=== PATIENT | female | born 1955 | race Caucasian/White ===

== ENCOUNTER 2020-01-17 08:58 | Observation (INO) ==
[2020-01-17] MEDS ORDERED: ASPIRIN PO ONE (09:23)
--- NOTE | 2020-01-17 09:31 | PROVIDER DOCUMENTATION ---
HPI-Chest Pain - General Chief Complaint: Chest Pain Stated Complaint: chest pain Time Seen by Provider: 01/17/20 09:08 Source: patient Allergies/Adverse Reactions: Patient Allergies Allergy/AdvReac Type Severity Reaction Status Date / Time Sulfa (Sulfonamide Allergy HIVES Verified 05/18/19 00:07 Antibiotics) Home Medications: Home Medication List Medication Instructions Recorded Confirmed Last Taken Type Alprazolam 1 tab PO QHS PRN 05/18/19 01/17/20 Unknown History Fenofibrate 1 cap PO QPM 05/18/19 01/17/20 Unknown History Hydrocodone/Acetaminophen [[place] 1 ea PO Q6-8H PRN PRN #20 tab 05/18/19 01/17/20 Unknown Rx 5-325 Tablet] Nifedipine [Nifedipine ER] 1 tab PO QPM 05/18/19 01/17/20 Unknown History Omeprazole [Prilosec] 1 cap PO DAILY PRN 05/18/19 01/17/20 Unknown History - History of Present Illness-CP Nature of Presenting Problem: [id number] presents via EMS states that this am she started having midsternal sharp chest pain that did not radiate. Patient was just sitting drinking coffee when she started having this pain. She did have some associated nausea with this chest pain without any vomiting. She then did take Aspirin 325mg, [place] and Advil when this did not resolve her symptoms she did call EMS. She was given 2 nitro SL in route to the hospital her chest pain is now described as a more faint dull pressure midsternal that does not radiate. Patient does deny any n ausea or SOB. Chest wall is not tender to the touch. Patient is nontoxic in appearance. Location: reports: substernal Chest Pain Radiation: reports: no radiation Quality of Pain: reports: dull (now dull after 2 nitro tablets), sharp (initially sharp) Severity in ED: mild (now), severe (initially severe) Onset/Duration: 1 hour ago Timing: improving Context/Activities at Onset: reports: none Associated Symptoms: reports: nausea Nitro Today/Relief: 0.4 mg x 2, provided by EMS, mild relief Aspirin Treatment Today: 325 mg x 1, provided at home Prior Chest Pain/Cardiac Workup: reports: angina, cardiac cath, echocardiography , stress test Similar Symptoms Previously?: Yes Recently Seen Here or By Another Healthcare Provider: Yes (Dr. Phoenix and Dr. Amaral) Review of Systems - Adult - REVIEW OF SYSTEMS - ADULT Constitutional: reports: no symptoms reported. denies: fever, fatique Eyes: reports: no symptoms reported Ears, Nose, Mouth & Throat: reports: no symptoms reported Cardiovascular: reports: chest pain. denies: edema, irregular heart rate, syncope Respiratory: reports: no symptoms reported. denies: chronic cough, cough Gastrointestinal: reports: no symptoms reported, nausea. denies: vomiting Genitourinary: reports: no symptoms reported. denies: dysuria Musculoskeletal: reports: no symptoms reported Integumentary: reports: no symptoms reported Neurological: reports: no symptoms reported. denies: dizziness/vertigo, syncope Psychiatric: reports: no symptoms reported. denies: anxiety Endocrine: reports: no symptoms reported Hematologic/Lymphatic: reports: no symptoms reported Allergic/Immunologic: reports: no symptoms reported All Other Systems: Reviewed and Negative Past History - Adult - PAST MEDICAL HISTORY-ADULT Review of Records: reports: Old Records Reviewed, Nursing Assessment Review, Medications Reviewed, Social history reviewed & non-contributory. Major Childhood Illnesses: reports: denies history Cardiovascular: reports: HTN Respiratory: reports: denies history Gastrointestinal: reports: denies history Obstetrical/Gynecological: reports: denies history Genitourinary: reports: denies history Musculoskeletal: reports: denies history Neurological: reports: denies history Endocrine/Immune: reports: denies history Other Conditions: reports: denies history - IMMUNIZATION STATUS Childhood Immunizations: See Nurse Assessment Flu Vaccine: See Nurse Assessment - FAMILY HISTORY Family History: reviewed, not pertinent - SOCIAL HISTORY Smoking: denies Substance Use: denies Living Situation: family Physical Exam-General - PHYSICAL EXAM-ADULT Initial Vital Signs Reviewed: Yes - CONSTITUTIONAL General Appearance: appears well, alert - EYES Eyes: PERRL/EOMI, pink conjunctivae - HEAD, EARS, NOSE, MOUTH & THROAT HENMT: normocephalic/atraumatic, moist mucous membranes, normal ENT inspection - NECK Neck: non-tender, full range of motion, supple - RESPIRATORY Respiratory: chest non-tender, lungs clear, normal breath sounds, no respiratory distress, no accessory muscle use - CARDIOVASCULAR Cardiovascular: normal peripheral pulses, regular rate, rhythm, no edema, no ga llop, no JVD - GASTROINTESTINAL (ABDOMEN) Abdominal Exam: normal bowel sounds, non tender, soft - MUSCULOSKELETAL Extremity: normal range of motion, non-tender, normal gait, normal inspection, no pedal edema Peripheral Pulses: radial (R): 2+, radial (L): 2+, dorsalis-pedis (R): 2+, dorsalis-pedis (L): 2+ - SKIN Integumentary: normal color, normal turgor, warm/dry - NEUROLOGIC Neurologic: grossly normal - PSYCHIATRIC Psych/Mental Status: normal mood/affect, normal thought content, oriented x 3 - HEART Score HEART Score: History: Moderately Suspicious HEART Score: ECG: Normal HEART Score: Age: > or = 65 Years HEART Score: Risk Factors for Atherosclerotic Disease: 1 or 2 Risk Factors HEART Score: Troponin: < or = Normal Limit Total HEART Score:: 4 Progress - PLAN OF CARE/RESULTS Progress/Plan/Lab Results: Vital Signs - 8 hr 01/17/20 09:10 01/17/20 10:06 Temperature 97.9 F Pulse Rate 88 72 Respiratory Rate 16 15 Blood Pressure 152/81 168/80 O2 Sat by Pulse Oximetry 97 96 Laboratory Results - last 24 hr 01/17/20 01/17/20 01/17/20 09:26 09:26 09:26 WBC RBC Hgb Hct MCV MCH MCHC RDW Std Deviation Plt Count MPV Immature Gran % (Auto) Neut % (Auto) Lymph % (Auto) [place]comb % (Auto) Eos % (Auto) Baso % (Auto) Immature Gran # (Auto) Neut # (Auto) Lymph # (Auto) [place]comb # (Auto) Eos # (Auto) Baso # (Auto) PT INR PTT (Actin FS) Sodium 141 Potassium 4.0 Chloride 102 Carbon Dioxide 25 Anion Gap 14 BUN 19 Creatinine 0.7 Estimated GFR/1.73 m2 > 60 BUN/Creatinine Ratio 27 Glucose 128 H Calculated Osmolality 285 Calcium 9.2 Total Bilirubin 0.42 AST 49 H ALT 28 Alkaline Phosphatase 49 Creatine Kinase 96 Troponin T High Sens 6 Fkd-R-Cuqgrgwdfrw Pept 74 Total Protein 6.6 Albumin 4.5 Globulin 2.1 Albumin/Globulin Ratio 2.1 01/17/20 01/17/20 09:26 09:26 WBC 8.90 RBC 4.46 Hgb 13.0 Hct 40.2 MCV 90.1 MCH 29.1 MCHC 32.3 L RDW Std Deviation 14.6 H Plt Count 314 MPV 10.4 Immature Gran % (Auto) 0.3 Neut % (Auto) 72.6 Lymph % (Auto) 19.0 L Lipscomb % (Auto) 6.6 Eos % (Auto) 0.9 Baso % (Auto) 0.6 Immature Gran # (Auto) 0.03 Neut # (Auto) 6.46 Lymph # (Auto) 1.69 Lipscomb # (Auto) 0.59 Eos # (Auto) 0.08 Baso # (Auto) 0.05 PT 12.5 INR 0.93 PTT (Actin FS) 24.8 Sodium Potassium Chloride Carbon Dioxide Anion Gap BUN Creatinine Estimated GFR/1.73 m2 BUN/Creatinine Ratio Glucose Calculated Osmolality Calcium Total Bilirubin AST ALT Alkaline Phosphatase Creatine Kinase Troponin T High Sens Ect-B-Ylvtxuialbl Pept Total Protein Albumin Globulin Albumin/Globulin Ratio Orders Category Date Time Status Cardiac Monitoring DIRECTED Care 01/17/20 09:23 Active Oxygen Therapy- ED Nursing DIRECTED Care 01/17/20 09:23 Active Saline Loc NOW Care 01/17/20 09:23 Active CHEST-2 VIEWS [RAD] Stat Exams 01/17/20 09:23 Completed CBC WITH ELECTRONIC DIFF [HEME] Stat Lab 01/17/20 09:26 Completed CK PROFILE [SP CHEM] Stat Lab 01/17/20 09:26 Completed COMPREHENSIVE METABOLIC PANEL [CHEM] Stat Lab 01/17/20 09:26 Completed PRO B-NATRIURETIC PEPTIDE Stat Lab 01/17/20 09:26 Completed PROTIME WITH INR [COAG] Stat Lab 01/17/20 09:26 Completed PTT [COAG] Stat Lab 01/17/20 09:26 Completed TROPONIN T HIGH SENSITIVITY Stat Lab 01/17/20 09:26 Completed Aspirin Med 01/17/20 09:23 Discontinued 325 mg PO NOW ONE CP/SOB/Palp >45 yrs of Age Stat Oth 01/17/20 09:23 Ordered EKG [EKG] Stat Ther 01/17/20 09:23 Draft Patient agrees with POC rendered today. Result Diagrams: 01/17/20 09:26 01/17/20 09:26 - EKG 1 Time of EKG reading by physician:: 09:09 EKG Read and Signed by:: Juliano Wise EKG Interpretation (*Must complete 3 of following elements*): Normal Rate: 77 Rhythm: Normal Sinus Rhythm [place]: normal QRS: normal [place] Interval: normal ST Wave: normal - XRAY 1 XRAY Study: Chest (COMMENT: There is no evidence of acute cardiac or pulmonary disease. Compared to 05/18/2019 there has been no significant change in the appearance of the chest. IMPRESSION: Stable chest. Electronically signed by Arsenio St 01/17/2020 10:01 AM) Impression: See EMR Report - CONSULTS/PCP/HOSPITALIST Notification #1 *Consult/PCP/Hospitalist*: Dr. Amaral Time Discussed: 10:24 Reason/Comments: will admit patient Consult Disposition: Admit Departure - Departure Date of Disposition Decision: 01/17/20 Time of Disposition Decision: 10:23 DIAGNOSIS: Chest pain Qualifiers: Chest pain type: unspecified Qualified Code(s): R07.9 - Chest pain, unspecified Disposition: ADMITTED INPATIENT 09 Certified Medical Emergency: Emergent Condition: Stable Referrals and Follow-Ups: Taz Amaral MD [Primary Care Provider] - - Critical Care Note This patient required my direct & personal management of CC.: No Attestation - Physician/ BHAVESH Attestation Patient care was provided by Advanced Practice Provider:: Yes Advanced Practice Provider:: Maryuri Stuart Advanced Practice Provider documentation review:: The Mid-level provider documentation, treatment plan and medical decision making was reviewed by the physician who agrees with all treatment and medical decision making by the MLP. The physician spent face to face time with patient:: No Advanced Practice Provider documentation review:: Supervising physician onsite and consulted in the evaluation and care of this patient. The physician did not have a face to face encounter with the patient.
--- NOTE | 2020-01-17 09:42 | EKG Report ---
Test Performed on : 01/17/2020 09:09:11 AM Test Reason : cp Blood Pressure : / mmHG Vent. Rate : 077 BPM Atrial Rate : 077 BPM P-R Int : 148 ms QRS Dur : 074 ms QT Int : 360 ms P-R-T Axes : 000 024 040 degrees QTc Int : 407 ms Normal sinus rhythm. Normal ECG When compared with ECG of 17-MAY-2019 23:49, No significant change was found Unconfirmed Result
[2020-01-17 09:50] LABS: BASO# 0.05 X1000 (0.0-0.2); BASO% 0.6 % (0.0-0.8); EOS# 0.08 X1000 (0.0-0.7); EOS% 0.9 % (0.0-10.0); HEMATOCRIT 40.2 % (37.0-47.0); IMM GRAN# 0.03 X1000 (0.0-0.04); IMM GRAN% 0.3 % (0.0-0.5); LYMPH# 1.69 X1000 (1.2-3.4); MCH 29.1 PG (27-31); MCHC 32.3 g/dL (33-37); MCV 90.1 FL (81-99); MONO# 0.59 X1000 (0.11-0.59); MONO% 6.6 % (1.7-9.3); MPV 10.4 FL (7.4-10.4); NEUT# 6.46 X1000 (1.4-6.5); NEUT% 72.6 % (42.2-75.2); PLT 314 X1000 (130-400); RBC 4.46 XMIL (4.2-5.4); RDW 14.6 % (11.5-14.5)
[2020-01-17 09:56] LABS: INR 0.93; PROTIME 12.5 Seconds (11.0-16.0); PTT 24.8 Seconds (22.3-41.8)
[2020-01-17 10:01] LABS: AGAP 14; ALB/GLOB RATIO 2.1; ALBUMIN 4.5 g/dL (3.5-5.0); ALKALINE PHOSPHATASE 49 U/L (32-104); BUN 19 mg/dL (8-22); CALCIUM 9.2 mg/dL (8.8-10.2); CHLORIDE 102 mmol/L (98-107); CK PROFILE 96 U/L (24-173); COSMO 285; CREATININE 0.7 mg/dL (0.5-0.9); ESTIMATED GFR > 60; GLUCOSE 128 mg/dL (70-104); GOT 49 U/L (10-30); GPT 28 U/L (10-36); SODIUM 141 mmol/L (136-145); TCO2 25 mmol/L (25-35); TOTAL BILIRUBIN 0.42 mg/dL (0.20-1.00); TOTAL PROTEIN 6.6 g/dL (6.3-8.3)
--- NOTE | 2020-01-17 10:04 | Diag Imaging Result Doc PS360 ---
EXAM: CHEST-2 VIEWS 01/17/2020 HISTORY: cp TECHNIQUE: PA and lateral chest COMMENT: There is no evidence of acute cardiac or pulmonary disease. Compared to 05/18/2019 there has been no significant change in the appearance of the chest. IMPRESSION: Stable chest. Electronically signed by Arsenio St 01/17/2020 10:01 AM
[2020-01-17] MEDS ORDERED: TYLENOL PO PRN (10:57)
--- NOTE | 2020-01-17 13:07 | HISTORY AND PHYSICAL ---
CHIEF COMPLAINT: Chest pain. HISTORY OF PRESENT ILLNESS: This 65-year-old white female was drinking coffee this morning on or around 7 a.m. when she began to have chest discomfort. She has a history of PSVT which caused some chest discomfort in the past. She came to the emergency room approximately 8 months ago with similar complaint. She stated the chest pain got more and more severe. She took ibuprofen and then a hydrocodone, all by 7:30 a.m., and then called an ambulance. Initial workup in the emergency room was negative for myocardial ischemia. She was admitted for observation, particularly for telemetry and for serial cardiac enzymes. PAST MEDICAL HISTORY: 1. Hypertension. 2. Hyperlipidemia. 3. Gastroesophageal reflux disease. 4. Fibromyalgia. 5. History of Raynaud phenomenon. 6. Obstructive sleep apnea, "mild." 7. History of thyroid nodule. 8. Hx of PSVT PAST SURGICAL HISTORY: Patient had a laminectomy with spinal fusion in 2000. SOCIAL HISTORY: The patient is . She is a lifelong nonsmoker. She does not use alcohol. FAMILY HISTORY: Significant for hypertension, hyperlipidemia, heart failure and heart attacks. PRESENT MEDICATIONS: Aspirin 81 mg p.o. daily, Lipofen 150 mg p.o. daily, Prilosec 20 mg p.o. daily, alprazolam 0.25 mg p.o. at bedtime, nifedipine ER 60 mg p.o. daily. ALLERGIES: The patient is intolerant of H and co-A reductase inhibitors. She is allergic to sulfa-based antibiotics. REVIEW OF SYSTEMS: Patient denies any fever, chills, cough, wheezing, or shortness of breath. She has had no recent travel. History of present illness is consistent with previous cardiac symptoms. She has seen Dr. Phoenix in the past for regular follow up with Cardiology. She does have a documented history of paroxysmal supraventricular tachycardia. She denies any ongoing abdominal pain. She did have some nausea when her pain was intense this morning. She denies any swelling of her lower extremities. She has had no symptoms consistent with orthopnea or PND. She has had normal bowel function. She has no genitourinary complaints. PHYSICAL EXAM: VITAL SIGNS: Patient is afebrile. Vital signs are currently stable. HEENT: The sclerae are anicteric. Oral mucosa is adequately hydrated. NECK: Exam is unremarkable. LUNGS: Clear to auscultation. CARDIOVASCULAR: Regular without appreciable murmur or gallop. CHEST WALL: Nontender. BACK: Nontender. ABDOMEN: Shows bowel sounds are present. She is nontender, nondistended. EXTREMITIES: No peripheral edema. NEUROLOGIC: Cranial nerves are intact by observation. She is alert, oriented, conversive and appropriate. LAB WORK: White cell count 8.9, hemoglobin 13, BUN 19, creatinine 0.7, glucose 128. Troponin was negative. CK was negative. ASSESSMENT AND PLAN: 1. The patient is admitted for observation, particularly for telemetry. Consulted Cardiology. She may need some additional testing. I have held her nothing by mouth for now in the event that we need to do some testing today. 2. We will reconcile patient's home medications, and we will start those back as appropriate. cc: Taz Amaral MD MTDD
[2020-01-17] MEDS: PEPCID PO SCH ×2 (13:16→21:45)
[2020-01-17 13:50] LABS: URINE SOURCE CLEAN CATCH
--- NOTE | 2020-01-17 14:30 | CARDIOLOGY CONSULTATION ---
DATE: 01/17/2020 REQUESTING PHYSICIAN: Dr. Taz Amaral. INDICATION: Chest pain. HISTORY: Mrs. Chacko is a pleasant, 65-year-old, female, who presented to the emergency department today at about 9:00 in the morning complaining of sudden onset of chest pain that she says was very intense and very sharp of rapid onset in the center of the chest, approximately half an hour after she got up from bed. She said that after getting up from bed, she went to feed her cat, and then she had a cup of coffee, and as she was sitting down resting, all of the sudden, she experienced the pain. This was associated with slight nausea. No diaphoresis. No dizziness. No syncope. She could not tell if she had any palpitation with it. At any rate, because of the intensity of the pain, she took ibuprofen, and then she came to the ER. In the ER, they did a troponin level that is normal. ProBNP level is normal. Chest x-ray was also done, and it has been reported as normal. EKG shows normal sinus rhythm. The patient feels better now. She had taken also a hydrocodone. PAST MEDICAL HISTORY: Positive for episodes of chest pain in the past. She was found to have supraventricular tachycardia and was treated. She has hypertension, hyperlipidemia, acid reflux, fibromyalgia, Raynaud's phenomenon, and anxiety. PAST SURGICAL HISTORY: She had laminectomy. SOCIAL HISTORY: She is , retired. Lives at home with . She has children. She retired as a member of the [employer]. 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 FAMILY HISTORY: Positive for mother having coronary bypass surgery. Father had atrial fibrillation, CHF. ALLERGIES: Sulfa drugs. HOME MEDICATIONS: At this time included alprazolam at bedtime, hydrocodone/acetaminophen, nifedipine, and omeprazole. She also takes fenofibrate. REVIEW OF SYSTEMS: At this time is noncontributory. She has seen Dr. Tyrone Phoenix in the past, and over a year and a half ago, she had an echocardiogram that showed no significant abnormalities. She has taken a stress test many years ago. PHYSICAL EXAMINATION: Vital Signs: Blood pressure is 153/82, pulse 84, temperature 98.5 degrees, respirations 16. General: The patient is awake, alert, oriented, in no distress. HEENT: Unremarkable. Chest: Sounds clear to auscultation and percussion. Heart: Heart sounds are regular and rhythmic. She does have a systolic click, raising concern for either mitral valve prolapse or tricuspid valve prolapse. Abdomen: Soft, nontender. No masses. No hepatomegaly. Extremities: Good pulses. No peripheral edema. Neurologic: Follows commands. Moves all 4 extremities. IMPRESSION: 1. Patient who presented with a very atypical chest pain. 2. History of hyperlipidemia. 3. Hypertension. 4. Acid reflux. 5. Fibromyalgia. RECOMMENDATION: At this time, we will obtain a treadmill exercise stress myocardial perfusion study. Will also ask for a 2D echocardiogram. If those two tests are negative, then I would suggest to give her a trial of discontinuation of nifedipine, and use diltiazem instead since nifedipine could potentially worsen acid reflux. Also, consideration may be given to obtaining esophageal motility studies if this keeps on happening. Further advice will be forthcoming. cc: MD Taz Handy MD
[2020-01-17 14:39] LABS: BILIRUBIN URINE NEGATIVE (NEGATIVE); BLOOD URINE NEGATIVE (NEGATIVE); COLOR YELLOW; GLUCOSE URINE NEGATIVE (NEGATIVE); KETONE URINE NEGATIVE (NEGATIVE); LEUKOCYTES URINE NEGATIVE (NEGATIVE); NITRITE URINE NEGATIVE (NEGATIVE); PH URINE 7.5; PROTEIN URINE NEGATIVE (NEGATIVE); SP GRAVITY URINE 1.011; TURBIDITY URINE CLEAR (CLEAR); UR EPITHELIAL CELLS <10 /HPF (<10); URINE BACTERIA NEGATIVE /HPF; URINE RBC <10 /HPF (<10); URINE WBC <10 /HPF (<10); UROBILINOGEN URINE NORMAL (NORMAL)
[2020-01-17] MEDS ORDERED: XANAX PO PRN (15:39)
[2020-01-17] MEDS: NORCO-5 PO PRN (16:52)
[2020-01-17] MEDS ORDERED: ADALAT CC PO SCH (21:00)
[2020-01-17] MEDS ORDERED: TRICOR PO SCH (21:00)
[2020-01-17] MEDS: ZOFRAN IV PRN (21:47)
[2020-01-18] MEDS: NORCO-5 PO PRN (00:15)
--- NOTE | 2020-01-18 06:59 | EKG Report ---
Test Performed on : 01/18/2020 06:50:26 AM Test Reason : chest pain Blood Pressure : / mmHG Vent. Rate : 076 BPM Atrial Rate : 076 BPM P-R Int : 160 ms QRS Dur : 082 ms QT Int : 386 ms P-R-T Axes : -14 048 063 degrees QTc Int : 434 ms Normal sinus rhythm. Normal ECG When compared with ECG of 17-JAN-2020 09:09, (Unconfirmed) No significant change was found Confirmed by Jl Villatoro MD ([id number]) on 01/19/2020 5:31:36 PM
[2020-01-18] MEDS: ZOFRAN IV PRN (08:32)
[2020-01-18] MEDS ORDERED: CARDIZEM CD PO ONE (10:06)
--- NOTE | 2020-01-18 10:35 | PROGRESS NOTE ---
DATE: 01/18/2020 SUBJECTIVE: The patient states that she feels worse this morning. She states that her chest is hurting at the same level as when she called the ambulance yesterday morning. She denies any shortness of breath or diaphoresis. She contends that the pain is a deep, sharp pain in her chest radiating to the back. She states she has had some mild swallowing difficulty as if things are "getting hung" in the middle of her chest. OBJECTIVE: Vital Signs: 98.8, 72, 14, 148/129, 87 percent saturated on room air. General: On physical examination, she is a well-developed white female. She is in no acute distress. She is not diaphoretic or having any respiratory difficulty. The patient appears anxious. Lungs: Clear to auscultation bilaterally. Cardiovascular: Regular without appreciable murmur or gallop. The patient does not have any significant chest wall tenderness. She has no vertebral point tenderness on the spine. Peripheral pulses in the wrists and feet are easily palpable and appear normal. She has normal capillary refill. Abdomen: Benign. ASSESSMENT AND PLAN: 1. The patient continues to have chest pain. All of her cardiac enzymes have been negative. She has had occasional to rare palpitations while in the hospital. No dysrhythmias have been reported. She is scheduled for a stress test and echocardiogram today. No explanation for this last blood pressure reading that we had obtained. We will continue to follow this. Mentioned in Dr. Burger's note yesterday, a switch from nifedipine to diltiazem will be made. 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 There was no titration performed. We are going to start over in that regard. 2. The patient has a history with reflux. She is on Pepcid. I am going to add some Carafate. Possibility of a pill ulceration in her esophagus remains. 3. I am strongly considering a CT scan of the chest to rule out both pulmonary embolus or other vascular complication, although frankly the patient is not in the type of distress I would usually see with either one of those entities. 4. Fibromyalgia. Aware. 5. Anxiety. Aware. cc: Taz Amaral MD
[2020-01-18] MEDS ORDERED: MAALOX PLUS LIQUID PO ONE (11:24)
--- NOTE | 2020-01-18 13:47 | Diag Imaging Result Doc PS360 ---
EXAM: CT THORAX W/CONTRAST INDICATION: CP TECHNIQUE: This exam was performed using automated exposure control, adjustment of mA or kV according to patient size, and/or use of iterative reconstruction technique. COMPARISON: None. FINDINGS: There is a calcified granuloma in the left lower lobe near the base. There is a tiny 3 mm noncalcified nodule in the right upper lobe near the apex on image 23 of series 3 that statistically very likely represents a small granuloma. The lungs are grossly clear, otherwise. No airspace consolidations are appreciated. There is no pleural fluid collection and no pneumothorax. There is no cardiomegaly. There is no evidence of significant mediastinal or hilar lymphadenopathy. There is trace aortic atherosclerotic calcification. No central pulmonary artery filling defects are appreciated. Limited views of the upper abdomen reveals mild to moderate diffuse hepatic steatosis. There are a couple of tiny cystic appearing hepatic lesions as well. There is no evidence of acute osseous abnormality. IMPRESSION: 1.No evidence of acute chest pathology. 2.Other incidental/nonacute findings detailed above. Electronically signed by Blue Cramer 01/18/2020 1:44 PM
[2020-01-18] MEDS: PEPCID PO SCH (14:37)
--- NOTE | 2020-01-18 14:43 | Diag Imaging Result Document ---
PROCEDURE NAME: MYOCARDIAL PERF SCAN, STR/REST - 01/18/2020 STUDY: Rest/stress treadmill exercise myocardial perfusion study. INDICATION: Patient with atypical chest pain. DESCRIPTION: The patient came into the nuclear lab and received a rest injection of technetium 99 sestamibi 11.1 mCi. Multiple tomographic views of the cardiac structures were obtained at rest. Subsequently the patient underwent a treadmill exercise stress protocol. At peak exercise she was injected with technetium 99 sestamibi 31.4 mCi. Multiple tomographic views of the cardiac structures were obtained following completion of the exercise protocol. SUMMARY OF THE ELECTROCARDIOGRAPHIC PORTION OF THE STUDY: Resting ECG shows sinus rhythm with rate of 83 beats per minute. Resting blood pressure is 114/74. Resting ECG shows sinus rhythm and there is no abnormality. The patient walked on the treadmill for a total time of 7 minutes and 31 seconds. She completed 2 stages of the Dario protocol and walked for 1.5 minutes into the third stage achieving a maximal heart rate of 133 beats per minute representing 86% of maximum predicted heart rate for her age. Peak blood pressure was 136/72. Peak exercise ECG shows sinus tachycardia without any ischemic changes. The patient reported no chest pain. The test was terminated because of fatigue and the achievement of an adequate heart rate. The patient had been complaining of a vague chest discomfort that got better after administration of Maalox and she reported some slight worsening of it during the exercise, however, she did not stop walking on the treadmill because of chest pain. The exercise capacity of this patient is 28% above average for age and gender and the workload achieved was 9.3 METs which is quite good. During the recorded phase no abnormalities were noted. No arrhythmia was noted. In summary, the electrocardiographic response to exercise is normal. SUMMARY OF THE MYOCARDIAL PERFUSION PORTION OF THE STUDY: Poststress tomographic views of the left ventricle show normal homogeneous distribution of the radiotracer throughout the entire left ventricular myocardium. There was no evidence of any postexercise defect. Rest images showed normal perfusion. Polar plots revealed the same. There was no evidence of neither inducible ischemia nor myocardial scar. Gated SPECT showed normal left ventricular systolic function. The ejection fraction at rest was 89% and poststress 90%. Using an alternative protocol the resting ejection fraction was 84% and poststress 87%. There is no wall motion abnormality. Ventricular volumes are normal. The lung/heart ratio is normal. TID is normal. CONCLUSION: In summary, this study shows: 1. Normal electrocardiographic response to the treadmill exercise protocol. 2. Normal poststress myocardial perfusion scan. There is no scintigraphic evidence of exercise- induced myocardial ischemia. 3. Normal left ventricular systolic function with ejection fraction estimated at 90% with normal ventricular volumes and no wall motion abnormality. This study represents a low risk for ischemic events. Clinical correlation is recommended. cc: Tone Burger MD [facility]
[2020-01-18 16:02] VITALS: BP 134/99
--- NOTE | 2020-01-18 16:50 | ECHO REPORT ---
ORDER DATE: 01/18/2020 INTERPRETING PHYSICIAN: Tone Burger MD INDICATION: Patient with systolic click and chest pain. Question of mitral valve prolapse. M-MODE MEASUREMENTS: Left ventricle end diastole: 4.4 cm. Left ventricle end systole: 3 cm. Posterior wall: 0.9 cm. Interventricular septum: 1 cm. Left atrium: 3.4 cm. Aortic diameter: 2.7 cm. SUMMARY OF 2-DIMENSIONAL IMAGIN. Left ventricular function is normal. The ejection fraction visually is on the order of 60% to 65%. 2. The right ventricle appears to be normal. 3. The left atrium appears to be normal. 4. The mitral valve really does not show any obvious prolapse. I do not see any significant mitral regurgitation. 5. The aortic valve shows thickening at the edges of the left coronary cusp as well as the noncoronary cusp. There is no aortic regurgitation. There is no aortic stenosis. 6. The tricuspid valve shows a mild degree of regurgitation. 7. Pulmonary pressure appears to be on the order of 31 mmHg. 8. I do not see evidence of a pericardial effusion. No sign of thrombus. 9. The pulmonic valve also appears to be grossly normal. SUMMARY: In summary, this study shows: 1. No evidence of mitral valve prolapse. 2. There is thickening of the edges of the left coronary cusp and noncoronary cusp of the aortic valve without stenosis or regurgitation. Clinical correlation is recommended. cc: MD Taz Handy MD
--- NOTE | 2020-01-18 18:33 | CARDIOLOGY PROGRESS NOTE ---
DATE: 01/18/2020 CHIEF COMPLAINT: Chest pain. SUBJECTIVE: Ms. Chacko had some discomfort in the chest at the time when she went for the stress test this morning. It got better to some extent after having a dose of Maalox. She walked on the treadmill and the pain really did not change much and her stress test has come back normal. She has ruled out for a myocardial infarction. All of her troponin levels have come back negative. ProBNP was normal. She is feeling somewhat better. OBJECTIVE: Vital Signs: Temperature is 98.8, pulse 72, respirations 14, and blood pressure 148/129. General: She is awake, alert, oriented, and in no distress. HEENT: Unremarkable. Respiratory: Chest sounds clear to auscultation and percussion. Heart sounds are regular and rhythmic. She does have a systolic click. Abdomen: The abdomen is nontender. Extremities: The extremities show no edema. Neurological: Follows commands and moves all 4 extremities. IMPRESSION: 1. Patient who presents with chest pain that really sounds atypical. 2. History of fibromyalgia. 3. Hypertension. 4. Hyperlipidemia. 5. Suspect gastroesophageal reflux disease. RECOMMENDATIONS: At this time we have already reviewed the CT of the chest that shows no evidence of pulmonary embolism. It did show some fatty liver changes. I did not see any coronary calcifications there. A very small granuloma appears to be present. The patient has a systolic click that may be consistent with a mitral valve prolapse. I will ask for a 2D echocardiogram focusing on the mitral valve just to complete her evaluation, however, at this point in time my suspicion for cardiac pathology that is causing her chest pain is very low. I believe that the patient may be discharged home with instructions to follow with Dr. Amaral and perhaps consider a GI evaluation for gastroesophagitis and GERD. cc: MD Taz Handy MD
[2020-01-18] MEDS ORDERED: CARAFATE PO SCH (21:00)
--- NOTE | 2020-01-22 10:10 | DISCHARGE SUMMARY ---
ADMISSION DATE: 01/17/2020 DISCHARGE DATE: 01/18/2020 DISCHARGE DIAGNOSES: 1. Chest pain, not otherwise specified. 2. Gastroesophageal reflux disease. 3. History of paroxysmal supraventricular tachycardia. 4. Fibromyalgia. HOSPITAL COURSE: This 65-year-old, white female called an ambulance because she had chest pain while drinking coffee. She stated it was sharp but persistent. They gave her nitroglycerin in the ambulance and she seemed to get better. She was admitted to the hospital. Multiple cardiac enzymes were negative. Cardiology was consulted. They had seen her before in the office and she had Holter monitor testing demonstrating PSVT. A myocardial perfusion scan was performed which was normal. An echocardiogram was performed which appeared to be normal as well. Cardiology cleared the patient to be discharged home. A suggestion was made to switch from nifedipine to diltiazem for heart rate control, blood pressure control, and because it was better tolerated in people with reflux. The patient was changed off of nifedipine XL 60 to diltiazem CD 180. She has followup in 2 weeks in my office. cc: Taz Amaral MD
== END 2020-01-18 18:37 | disposition home or self-care (01) ==
LOC: SUPCPDRO → ED 08:58 → 1N 08:58
PROVIDERS: ADMIT Internal Medicine; ATTEND Internal Medicine